=== PATIENT | female | born 1950 | race Caucasian/White ===

== ENCOUNTER 2016-08-15 07:17 | Day surgery (SDC) | payer OTHER, MEDICARE ==
[2016-08-11 10:36] VITALS: BMI 38.6
[~2016-08-15 07:17] MED LIST: LEVOFLOXACIN 500 MG PREMIX BAG IVPB ONE
[2016-08-15] MEDS ORDERED: PROPOFOL 20 ML ONE ×2 (08:58→09:18)
[2016-08-15] MEDS ORDERED: MIDAZOLAM HCL 2 MG/2 ML SINGLE DOSE VIAL ONE (08:58)
[2016-08-15] MEDS ORDERED: LIDOCAINE HCL/PF 2% SDV 5ML VIAL ONE (09:02)
[2016-08-15] MEDS ORDERED: LEVOFLOXACIN 500 MG PREMIX BAG IVPB ONE (09:05)
[2016-08-15] MEDS ORDERED: LEVOFLOXACIN 500 MG IVPB 100 ML IVPB ONE (09:37)
[2016-08-15] MEDS ORDERED: ONDANSETRON 4 MG/2 ML VIAL IVPUSH PRN (09:53)
--- NOTE | 2016-08-15 10:03 | OP ---
Operative Note - Note: Operative Date: 08/15/16 Pre-Operative Diagnosis: right ureteral stone Operation: Right ESWL Findings: one cm right mid ureteral stone Post-Operative Diagnosis: Same as Pre-op Surgeon: Renato Buchanan Anesthesia: General Operative Report Dictated: Yes
[2016-08-15 10:30] VITALS: TEMP 98
[2016-08-15 11:30] VITALS: BP 110/76; PULSE 100
--- NOTE | 2016-08-15 17:37 | OP ---
DATE OF OPERATION: 08/15/2016 PREOPERATIVE DIAGNOSIS: Right ureteral stone. POSTOPERATIVE DIAGNOSIS: Right ureteral stone. PROCEDURE: Right extracorporeal shock wave lithotripsy. ATTENDING: Anastacio Buchanan M.D. ANESTHESIA: General. OPERATION: Patient was brought in the operating room, placed in a supine position on the operating room table. Ultrasonography and fluoroscopy were performed. A 1-cm mid ureteral stone was identified alongside the stent. General anesthesia was then administered with intravenous antibiotics consisting of Levaquin. Extracorporeal shock wave lithotripsy was then administered, 3000 impulses at 20 joules of power was administered to the stone with fragmentation of the stone on real time fluoroscopy and ultrasonography. No complications were noted. DISPOSITION: Disposition of the patient to the recovery room. ANASTACIO BARBOSA M.D. [id number]
== END 2016-08-15 11:32 | disposition home or self-care (01) ==
LOC: JASU-SURG 07:17
PROVIDERS: ATTEND Urology
PROC: 0TF6XZZ Fragmentation in Right Ureter, External Approach (ICD-10-PCS; principal; 2016-08-15 08:45)
DX: N20.0 Calculus of kidney (principal)
CPT/HCPCS: 94760

== ENCOUNTER 2018-05-21 06:13 | Day surgery (SDC) | payer OTHER, MEDICARE ==
[2018-05-18 15:04] VITALS: BMI 41.1
[2018-05-21 06:32] VITALS: TEMP 97.8
[2018-05-21] MEDS ORDERED: MIDAZOLAM HCL 2 MG/2 ML SINGLE DOSE VIAL ONE (08:07)
[2018-05-21] MEDS ORDERED: PROPOFOL 20 ML ONE (08:07)
[2018-05-21] MEDS ORDERED: KETOROLAC TROMETHAMINE 30 MG/1 ML VIAL ONE ×2 (08:32→09:30)
--- NOTE | 2018-05-21 08:59 | OP ---
Operative Note - Note: Operative Date: 05/21/18 Pre-Operative Diagnosis: Right renal stone Operation: Right ESWL Findings: 7mm mid pole renal stone Surgeon: Renato Buchanan Anesthesia: Fractional Estimated Blood Loss (mls): 0
[2018-05-21] MEDS ORDERED: LIDOCAINE HCL/PF 2% SDV 5ML VIAL ONE (09:14)
[2018-05-21 10:09] VITALS: BP 151/77; PULSE 88
--- NOTE | 2018-05-22 10:44 | OP ---
DATE OF OPERATION: 05/21/2018 PREOPERATIVE DIAGNOSIS: Right renal stone. POSTOPERATIVE DIAGNOSIS: Right renal stone. PROCEDURE: Right extracorporeal shock wave lithotripsy. ATTENDING: Anastacio Barbosa MD ANESTHESIA: Fractional. DESCRIPTION OF OPERATION: Patient was brought in the operating room and placed in supine position on the operating room table. Ultrasonography and fluoroscopy were performed. A 7-mm right mid-pole stone was identified. The patient was then given anesthesia and preoperative antibiotics. Shock wave lithotripsy was then started; 3000 impulses at 17 joules of power were administered to the stone. There was excellent fragmentation of the stone. ANASTACIO BARBOSA M.D. [id number]
== END 2018-05-21 10:19 | disposition home or self-care (01) ==
LOC: JASU-SURG 06:13
PROVIDERS: ATTEND Urology
PROC: 0TF3XZZ Fragmentation in Right Kidney Pelvis, External Approach (ICD-10-PCS; principal; 2018-05-21 15:30)
DX: N20.0 Calculus of kidney (principal)
CPT/HCPCS: 82962